=== PATIENT | male | born 1980 | race Caucasian/White ===

== ENCOUNTER 2017-02-26 14:31 | Inpatient (IN) | payer OTHER ==
[2017-02-26 15:14] LABS: Hematocrit 43 % (42-52); Hemoglobin 14.5 g/dl (14.0-18.0); Mean Corpuscular HGB Conc 34 g/dl (31-36); Mean Corpuscular Hemoglobin 31 pg (27-31); Mean Corpuscular Volume 92 fL (80-94); Mean Platelet Volume 8 um3 (7.4-10.4); Red Blood Count 4.65 10^6/ul (4.0-5.4); Red Cell Distribution Width 13 % (10.5-15); White Blood Count 5.7 10^3/ul (3.5-10.8)
[2017-02-26 15:20] LABS: Urine Bilirubin Negative (Negative); Urine Glucose Negative (Negative); Urine Nitrite Negative (Negative)
[2017-02-26 15:33] LABS: ALT 19 U/L (7-52); AST 20 U/L (13-39); Albumin 4.4 g/dL (3.2-5.2); Alkaline Phosphatase 69 U/L (34-104); Anion Gap 7 mmol/L (2-11); BUN/Creatinine Ratio 14.6 (8-20); Blood Urea Nitrogen 15 mg/dL (6-24); CO2 Carbon Dioxide 23 mmol/L (22-32); Calcium 9.4 mg/dL (8.6-10.3); Chloride 108 mmol/L (101-111); EGFR African American 105.7 (>60); EGFR Non-African American 82.2 (>60); Globulin 2.8 g/dL (2-4); Glucose 96 mg/dL (70-100); Potassium 3.8 mmol/L (3.5-5.0); Sodium 138 mmol/L (133-145); Total Protein 7.2 g/dL (6.4-8.9)
[2017-02-26 15:36] LABS: Benzodiazepine Urine Screen None Detected (None Detect)
[2017-02-26 15:49] LABS: Acetaminophen < 15 mcg/mL; Alcohol < 10 mg/dL (<10); Salicylate < 2.50 mg/dL (<30)
[2017-02-26 15:51] LABS: TSH (Thyroid Stimulating Horm) 1.55 mcIU/mL (0.34-5.60)
[2017-02-26] MEDS ORDERED: Diazepam TAB(*) 5 MG PO ONE (16:42)
[2017-02-26] MEDS ORDERED: chlorproMAZINE INJ* 25 MG/ML 2 ML (50 MG) IM PRN (21:05)
[2017-02-26] MEDS ORDERED: Acetaminophen TAB* 325 MG PO PRN (21:06)
[2017-02-26] MEDS ORDERED: Al Hydrox/Mg Hydrox/Simet LIQ* 30 ML UDC PO PRN (21:06)
[2017-02-26 21:16] LABS: Cholesterol 171 mg/dL; HDL Cholesterol 36.1 mg/dL; LDL Cholesterol 119 mg/dL; Triglycerides 81 mg/dL
[2017-02-26] MEDS: Prazosin CAP* 1 MG PO SCH (21:18)
--- NOTE | 2017-02-26 23:51 | ED ---
I, Oh,Sogiovani, scribed for Alix Morris MD on 02/26/17 at 1529 . Psychiatric Complaint - HPI Summary HPI Summary: This 36 y/o male presents to ED as 945 after police brought pt in. Pt was scheduled for invega shot, but got tired of waiting and ended up ambulating out of his apartment. He is requesting invega shot right now. PMHx is significant for depression, PTSD, and schizophrenia. Positive Hx of in-patient psych treatment. He lives alone. Pt is a former smoker and MJ user. Primary care involves Dr. Nair as his psychiatrist. - History Of Current Complaint Time Seen by Provider: 02/26/17 14:55 Hx Obtained From: Patient, Medical Records Onset/Duration: Sudden Onset Timing: Constant Character: Depressed Aggravating Factor(s): Nothing Alleviating Factor(s): Nothing Associated Signs And Symptoms: Positive: Negative Related History: Positive For: Prior Psychiatric Issues - Allergies/Home Medications Allergies/Adverse Reactions: Allergies Allergy/AdvReac Type Severity Reaction Status Date / Time No Known Allergies Allergy Verified 01/29/16 22:18 Home Medications: Home Medications Paliperidone SUSTENNA* [Invega Sustenna*] 234 mg IM Q28D 02/26/17 [History Confirmed 02/26/17] PMH/Surg Hx/FS Hx/Imm Hx Endocrine/Hematology History: Denies: Hx Anticoagulant Therapy, Hx Diabetes, Hx Thyroid Disease Cardiovascular History: Denies: Hx Hypertension, Hx Pacemaker/ICD Respiratory History: Reports: Hx Sleep Apnea Denies: Hx Asthma, Hx Chronic Obstructive Pulmonary Disease (COPD) History: Denies: Hx Renal Disease Neurological History: Denies: Hx Dementia, Hx Seizures Psychiatric History: Reports: Hx Depression, Hx Post Traumatic Stress Disorder, Hx Schizophrenia, Hx of Violent Episodes Against Others, Hx Substance Abuse - hx marijuana use Denies: Hx Eating Disorder Infectious Disease History: Denies: Hx Hepatitis, Hx Human Immunodeficiency Virus (HIV) - Family History Family History: father: AAA - Social History Alcohol Use: Rare Hx Substance Use: Yes Substance Use Type: Reports: Marijuana Substance Use Comment - Amount & Last Used: PT SAYS HE "MIGHT DO" COCAINE SOMETIMES Hx Tobacco Use: Yes Smoking Status (MU): Heavy Every Day Tobacco Smoker Type: Cigarettes Amount Used/How Often: Pt unsure of start date, unsure of amount/how often. Smoked in last 30days Length of Time of Smoking/Using Tobacco: unsure of how long Have You Smoked in the Last Year: Yes Review of Systems Negative: Fever Positive: Other - Requesting invega shot. Negative: Depressed All Other Systems Reviewed And Are Negative: Yes Physical Exam Triage Information Reviewed: Yes Vital Signs On Initial Exam: Initial Vitals Temp Pulse Resp BP Pulse Ox 98.2 F 98 16 144/69 99 02/26/17 14:45 02/26/17 14:45 02/26/17 14:45 02/26/17 14:45 02/26/17 14:45 Vital Signs Reviewed: Yes Appearance: Positive: Well-Appearing, No Pain Distress Skin: Positive: Warm, Skin Color Reflects Adequate Perfusion, Dry Eyes: Positive: EOMI, CANELO Neck: Positive: Supple, Nontender Respiratory/Lung Sounds: Positive: Clear to Auscultation, Breath Sounds Present Cardiovascular: Positive: RRR, Pulses are Symmetrical in both Upper and Lower Extremities Abdomen Description: Positive: Nontender, Soft Musculoskeletal: Positive: Strength/ROM Intact Neurological: Positive: Sensory/Motor Intact, Alert, Oriented to Person Place, Time Psychiatric: Positive: Affect/Mood Appropriate AVPU Assessment: Alert Diagnostics - Vital Signs Vital Signs Temp Pulse Resp BP Pulse Ox 02/26/17 16:52 18 02/26/17 15:00 98.2 F 68 16 142/78 100 02/26/17 14:45 98.2 F 98 16 144/69 99 - Laboratory Lab Results: Lab Results 02/26/17 02/26/17 Range/Units 14:55 14:55 WBC 5.7 (3.5-10.8) 10^3/ul RBC 4.65 (4.0-5.4) 10^6/ul Hgb 14.5 (14.0-18.0) g/dl Hct 43 (42-52) % MCV 92 (80-94) fL MCH 31 (27-31) pg MCHC 34 (31-36) g/dl RDW 13 (10.5-15) % Plt Count 267 (150-450) 10^3/ul MPV 8 (7.4-10.4) um3 Neut % (Auto) 76.6 (38-83) % Lymph % (Auto) 14.4 L (25-47) % [place] % (Auto) 7.0 (1-9) % Eos % (Auto) 1.1 (0-6) % Baso % (Auto) 0.9 (0-2) % Absolute Neuts (auto) 4.4 (1.5-7.7) 10^3/ul Absolute Lymphs (auto) 0.8 L (1.0-4.8) 10^3/ul Absolute Monos (auto) 0.4 (0-0.8) 10^3/ul Absolute Eos (auto) 0.1 (0-0.6) 10^3/ul Absolute Basos (auto) 0.1 (0-0.2) 10^3/ul Absolute Nucleated RBC 0 10^3/ul Nucleated RBC % 0 Urine Color Yellow Urine Appearance Clear Urine pH 5.0 (5-9) Ur Specific [place] 1.027 (1.010-1.030) Urine Protein Negative (Negative) Urine Ketones Negative (Negative) Urine Blood Negative (Negative) Urine Nitrate Negative (Negative) Urine Bilirubin Negative (Negative) Urine Urobilinogen Negative (Negative) Ur Leukocyte Esterase Negative (Negative) Urine Glucose Negative (Negative) Urine Ascorbic Acid * H (Negative) Result Diagrams: 02/26/17 14:55 02/26/17 14:55 Lab Statement: Any lab studies that have been ordered have been reviewed, and results considered in the medical decision making process. Course/Dx - Course Course Of Treatment: pt admitted to [facility] in stable condition - Differential Dx/Clinical Impression Provider Diagnosis: Paranoid schizophrenia - Physician Notifications Patient Is Medically Stable For: Psych Evaluation - medically cleared at 1559 PM Discharge - Discharge Plan Condition: Stable Disposition: PSYCHIATRIC FACILITY-[facility] The documentation as recorded by the Noe genao Soohyun accurately reflects the service I personally performed and the decisions made by , Alix Morris MD.
[2017-02-27] MEDS ORDERED: Paliperidone SUSTENNA* 234 MG/1.5 ML IM ONE (09:00)
[2017-02-27] MEDS: Vitamin THERAPEUTIC TAB PO SCH (09:33)
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
[2017-02-27] MEDS: Prazosin CAP* 1 MG PO SCH (20:13)
[2017-02-27] MEDS: QUEtiapine TAB* 100 MG PO PRN (23:55)
[2017-02-28] MEDS: Vitamin THERAPEUTIC TAB PO SCH (09:38)
[2017-02-28] MEDS: QUEtiapine TAB* 100 MG PO PRN ×2 (13:55→23:04)
--- NOTE | 2017-02-28 14:35 | PN ---
Subjective - Subjective Service Type: 25677 Hosp care 15 min low complexity Subjective: The patient has been observed paying obsessive attention to a female staff member on the milieu and making that person uncomfortable. He is religiously preoccupied today, stating "I just want to make everything right with God." He denies violent ideation but is odd and seen responding to internal stimuli in his room. He denies manic symptoms on review but old MMPI results indicate that he has shown manic and hypomanic tendencies in the past. He is willing to consider an additional medication for mood stabilization. Objective - Appearance Appearance: Well Developed/Nourished Dysmorphic Features: No Hygiene: Normal Grooming: Fairly Well Kept - Behavior Psychomotor Activities: Normal Exhibits Abnormal Movement: No - Attitude and Relatedness Attitude and Relatedness: Psychotically Related Eye Contact: Fair - Speech Quality: Unpressured Latencies: Normal Quantity: Appropriate - Mood Patient's Decription of Mood: "Good" - Affect Observed Affect: Fair Affect Consistent with: Euphoria - Thought Process Patient's Thought Process: Circumstantial Thought Content: Yes Paranoid Ideation, No Passive Wish, No Suicidal Planning, No Homicidal Ideation - Sensorium Experiencing Hallucinations: Yes Type of Hallucinations: Visual: No, Auditory: Yes, Command: No - Level of Consciousness Level of Consciousness: Alert Orientation: Yes Intact, Yes Orientated to Time, Yes Orientated to Place, Yes Orientated to Person - Impulse Control Impulse Control: Poor - Insight and Judgement Insight and Judgement: Impaired - Group Participation Particating in Group Activities: No - Medication Management Medication Management Adherence: Yes Assessment - Assessment Merits Inpatient Hospitalization: For Immediate Safety, For Stabilization Inpatient DSM-IV Dx: Schizoaffective, Bipolar Type Clinical Impression: 36 y.o. single, white male with a history of schizophrenia, questionable for schizoaffective disorder, and multiple inpatient psychiatric hospitalizations, currently treated by the ACT team, who is brought in on a 9.45 from [facility] where he showed up, agitated and under a police warrant for threatening psychotic behavior towards his neighbors. Plan - Plan Treatment Plan: Name: BONITA WOOD Birthdate: 1980 [id number] We have resumed injectable antipsychotic therapy with Invega Sustenna 234mg IM x one. He will likely require a booster dose of 156mg in 3 days. We will add a trial of Depakote ER 1000mg PO qhs as an adjunctive agent. Consider family meeting with ACT representatives. Continued Medication Management: Continue Outpt Medication Medications: Current Medications Acetaminophen (Tylenol Tab*) 650 mg PO Q4H PRN PRN Reason: PAIN or TEMP > 101 F Al Hydrox/Mg Hydrox/Simethicone (Maalox Plus*) 30 ml PO Q4H PRN PRN Reason: INDIGESTION Chlorpromazine HCl (Thorazine Inj*) 50 mg IM Q4H PRN PRN Reason: DANGEROUS BEHAVIOR/AGITATION Multivitamins (Theragran Tab*) 1 tab PO DAILY [facility] Last Admin: 02/28/17 09:38 Dose: Not Given Prazosin HCl (Minipress Cap*) 2 mg PO BEDTIME [facility] Last Admin: 02/27/17 20:13 Dose: 2 mg Quetiapine Fumarate (Seroquel Tab*) 100 mg PO Q4H PRN PRN Reason: INSOMNIA/ANXIETY Last Admin: 02/28/17 13:55 Dose: 100 mg - Discharge Plan Discharge Plan: Inpatient Hospitalization
[2017-02-28] MEDS: Prazosin CAP* 1 MG PO SCH (20:57)
[2017-02-28] MEDS: Divalproex ER TAB(*) 500 MG PO SCH (20:57)
[2017-03-01] MEDS: Vitamin THERAPEUTIC TAB PO SCH (08:29)
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
[2017-03-01] MEDS: Divalproex ER TAB(*) 500 MG PO SCH (19:35)
[2017-03-01] MEDS: Prazosin CAP* 1 MG PO SCH (19:36)
[2017-03-01] MEDS: QUEtiapine TAB* 100 MG PO PRN (19:36)
[2017-03-02] MEDS: Vitamin THERAPEUTIC TAB PO SCH (08:19)
--- NOTE | 2017-03-02 11:41 | PN ---
Subjective - Subjective Service Type: 78299 Hosp care 15 min low complexity Subjective: Patient continues to be odd and isolative. He is alleged to have hidden from a staff member assigned to perform 15min checks, jumping out at her from behind a bed and yelling "hopper!" He is not attending groups or socializing with peers. No complaints regarding medications. Objective - Appearance Appearance: Well Developed/Nourished Dysmorphic Features: No Hygiene: Normal Grooming: Fairly Well Kept - Behavior Psychomotor Activities: Normal Exhibits Abnormal Movement: No - Attitude and Relatedness Attitude and Relatedness: Psychotically Related Eye Contact: Fair - Speech Quality: Unpressured Latencies: Normal Quantity: Terse - Mood Patient's Decription of Mood: "Great" - Affect Observed Affect: Euphoric Affect Consistent with: Euphoria - Thought Process Patient's Thought Process: Circumstantial Thought Content: Yes Paranoid Ideation, No Passive Wish, No Suicidal Planning, No Homicidal Ideation - Sensorium Experiencing Hallucinations: No, Sensorium is Clear Type of Hallucinations: Visual: No, Auditory: No, Command: No - Level of Consciousness Level of Consciousness: Alert Orientation: Yes Intact, Yes Orientated to Time, Yes Orientated to Place, Yes Orientated to Person - Impulse Control Impulse Control: Poor - Insight and Judgement Insight and Judgement: Impaired - Group Participation Particating in Group Activities: No - Medication Management Medication Management Adherence: Yes Assessment - Assessment Merits Inpatient Hospitalization: For Immediate Safety, For Stabilization Inpatient DSM-IV Dx: Schizoaffective, Bipolar Type Clinical Impression: 36 y.o. single, white male with a history of schizophrenia, questionable for schizoaffective disorder, and multiple inpatient psychiatric hospitalizations, currently treated by the ACT team, who is brought in on a 9.45 from [facility] where he showed up, agitated and under a police warrant for threatening psychotic behavior towards his neighbors. Plan - Plan Treatment Plan: Name: BONITA WOOD Birthdate: 1980 [id number] We have resumed injectable antipsychotic therapy with Invega Sustenna 234mg IM x one. He will likely require a booster dose of 156mg in 3 days. We have added a trial of Depakote ER 1000mg PO qhs as an adjunctive agent. Consider family meeting with ACT representatives. Continued Medication Management: Continue Outpt Medication Medications: Current Medications Acetaminophen (Tylenol Tab*) 650 mg PO Q4H PRN PRN Reason: PAIN or TEMP > 101 F Al Hydrox/Mg Hydrox/Simethicone (Maalox Plus*) 30 ml PO Q4H PRN PRN Reason: INDIGESTION Chlorpromazine HCl (Thorazine Inj*) 50 mg IM Q4H PRN PRN Reason: DANGEROUS BEHAVIOR/AGITATION Divalproex Sodium (Depakote Er Tab(*)) 1,000 mg PO BEDTIME [facility] Last Admin: 03/01/17 19:35 Dose: 1,000 mg Multivitamins (Theragran Tab*) 1 tab PO DAILY [facility] Last Admin: 03/02/17 08:19 Dose: 1 tab Prazosin HCl (Minipress Cap*) 2 mg PO BEDTIME [facility] Last Admin: 03/01/17 19:36 Dose: 2 mg Quetiapine Fumarate (Seroquel Tab*) 100 mg PO Q4H PRN PRN Reason: INSOMNIA/ANXIETY Last Admin: 03/01/17 19:36 Dose: 100 mg - Discharge Plan Discharge Plan: Inpatient Hospitalization
[2017-03-02] MEDS: Prazosin CAP* 1 MG PO SCH (20:40)
[2017-03-02] MEDS: Divalproex ER TAB(*) 500 MG PO SCH (20:40)
[2017-03-03] MEDS: QUEtiapine TAB* 100 MG PO PRN (02:15)
[2017-03-03] MEDS: Vitamin THERAPEUTIC TAB PO SCH (08:46)
--- NOTE | 2017-03-03 17:18 | PN ---
Subjective - Subjective Subjective: Seclusive to his room, denies any bothersome psychiatric complaints, aviddly denies SI/HI or A/VH or side effects from prescribed meds. He is aware of and agreeable to plan of care here. Objective - Appearance Appearance: Obese Dysmorphic Features: No Hygiene: Normal Grooming: Well Kept - Behavior Psychomotor Activities: Abnormal-Decreased Exhibits Abnormal Movement: No - Attitude and Relatedness Attitude and Relatedness: Psychotically Related Eye Contact: Poor - Speech Quality: Unpressured Latencies: Long Quantity: Terse - Mood Patient's Decription of Mood: "Okay" - Affect Observed Affect: Unvariable Affect Consistent with: Dysphoria - Thought Process Patient's Thought Process: Impoverished Thought Content: No Passive Wish, No Suicidal Planning, No Homicidal Ideation, No Paranoid Ideation - Sensorium Experiencing Hallucinations: No, Sensorium is Clear - Level of Consciousness Level of Consciousness: Alert Orientation: Yes Intact - Impulse Control Impulse Control: Intact - Insight and Judgement Insight and Judgement: Impaired - Group Participation Particating in Group Activities: No - Medication Management Medication Management Adherence: Yes Assessment - Assessment Merits Inpatient Hospitalization: Consolidate Improvements, For Discharge Planning Inpatient DSM-IV Dx: Schizoaffective, Bipolar Type Clinical Impression: Stabilizing in this structured setting, tolerating trials of meds. He needs continued admission for stabilization. Plan - Plan Treatment Plan: Name: BONITA WOOD Birthdate: 1980 [id number] Medications: Current Medications Acetaminophen (Tylenol Tab*) 650 mg PO Q4H PRN PRN Reason: PAIN or TEMP > 101 F Al Hydrox/Mg Hydrox/Simethicone (Maalox Plus*) 30 ml PO Q4H PRN PRN Reason: INDIGESTION Chlorpromazine HCl (Thorazine Inj*) 50 mg IM Q4H PRN PRN Reason: DANGEROUS BEHAVIOR/AGITATION Divalproex Sodium (Depakote Er Tab(*)) 1,000 mg PO BEDTIME [facility] Last Admin: 03/02/17 20:40 Dose: 1,000 mg Multivitamins (Theragran Tab*) 1 tab PO DAILY [facility] Last Admin: 03/03/17 08:46 Dose: 1 tab Prazosin HCl (Minipress Cap*) 2 mg PO BEDTIME [facility] Last Admin: 03/02/17 20:40 Dose: 2 mg Quetiapine Fumarate (Seroquel Tab*) 100 mg PO Q4H PRN PRN Reason: INSOMNIA/ANXIETY Last Admin: 03/03/17 02:15 Dose: 100 mg - Discharge Plan Discharge Plan: Outpatient Follow Up Outpatient Program: [facility]
[2017-03-03] MEDS: Divalproex ER TAB(*) 500 MG PO SCH (20:32)
[2017-03-03] MEDS: Prazosin CAP* 1 MG PO SCH (20:32)
[2017-03-04] MEDS: Vitamin THERAPEUTIC TAB PO SCH (08:56)
[2017-03-04] MEDS: Divalproex ER TAB(*) 500 MG PO SCH (20:12)
[2017-03-04] MEDS: Prazosin CAP* 1 MG PO SCH (20:12)
[2017-03-05] MEDS: Vitamin THERAPEUTIC TAB PO SCH (08:24)
[2017-03-05] MEDS ORDERED: Paliperidone SUSTENNA* 156 MG/1 ML IM ONE (12:24)
--- NOTE | 2017-03-05 12:30 | PN ---
Subjective - Subjective Service Type: [id number] Hosp care 15 min low complexity Subjective: The patient continues to be hyperreligious. He states that God has given him special peng of "Flying...and durability." He is informed that we will be pursuing transfer to a State [facility] facility, to which he responds "You're messing with God's plan for me." He refused VPA level draw this AM. Pt. continues to avoid milieu activities. Objective - Appearance Appearance: Well Developed/Nourished Dysmorphic Features: No Hygiene: Normal Grooming: Fairly Well Kept - Behavior Psychomotor Activities: Normal Exhibits Abnormal Movement: No - Attitude and Relatedness Attitude and Relatedness: Psychotically Related Eye Contact: Fair - Speech Quality: Unpressured Latencies: Normal Quantity: Terse - Mood Patient's Decription of Mood: "Great" - Affect Observed Affect: Euphoric Affect Consistent with: Euphoria - Thought Process Patient's Thought Process: Circumstantial Thought Content: Yes Paranoid Ideation, No Passive Wish, No Suicidal Planning, No Homicidal Ideation - Sensorium Experiencing Hallucinations: No, Sensorium is Clear Type of Hallucinations: Visual: No, Auditory: No, Command: No - Level of Consciousness Level of Consciousness: Alert Orientation: Yes Intact, Yes Orientated to Time, Yes Orientated to Place, Yes Orientated to Person - Impulse Control Impulse Control: Poor - Insight and Judgement Insight and Judgement: Impaired - Group Participation Particating in Group Activities: No - Medication Management Medication Management Adherence: Yes Assessment - Assessment Merits Inpatient Hospitalization: For Immediate Safety, For Stabilization Inpatient DSM-IV Dx: Schizoaffective, Bipolar Type Clinical Impression: 36 y.o. single, white male with a history of schizophrenia, questionable for schizoaffective disorder, and multiple inpatient psychiatric hospitalizations, currently treated by the [facility] team, who is brought in on a 9.45 from [facility] where he showed up, agitated and under a police warrant for threatening psychotic behavior towards his neighbors. Plan - Plan Treatment Plan: Name: BONITA WOOD Birthdate: 1980 [id number] The patient is showing no signs of improvement yet. We have resumed injectable antipsychotic therapy with Invega Sustenna 234mg IM x one, and will give a booster dose of 156mg later today. We have added a trial of Depakote ER 1000mg PO qhs as an adjunctive agent but he refused the VPA level this AM. Will pursue transfer to the [facility] system. Continued Medication Management: Different Medication Medications: Current Medications Acetaminophen (Tylenol Tab*) 650 mg PO Q4H PRN PRN Reason: PAIN or TEMP > 101 F Al Hydrox/Mg Hydrox/Simethicone (Maalox Plus*) 30 ml PO Q4H PRN PRN Reason: INDIGESTION Chlorpromazine HCl (Thorazine Inj*) 50 mg IM Q4H PRN PRN Reason: DANGEROUS BEHAVIOR/AGITATION Divalproex Sodium (Depakote Er Tab(*)) 1,000 mg PO BEDTIME [facility] Last Admin: 03/04/17 20:12 Dose: 1,000 mg Multivitamins (Theragran Tab*) 1 tab PO DAILY [facility]YE Last Admin: 03/05/17 08:24 Dose: 1 tab Paliperidone Palmitate (Invega Sustenna*) 156 mg IM ONCE ONE Stop: 03/05/17 12:25 Prazosin HCl (Minipress Cap*) 2 mg PO BEDTIME [facility]YE Last Admin: 03/04/17 20:12 Dose: 2 mg Quetiapine Fumarate (Seroquel Tab*) 100 mg PO Q4H PRN PRN Reason: INSOMNIA/ANXIETY Last Admin: 03/03/17 02:15 Dose: 100 mg - Discharge Plan Discharge Plan: Consider Longer Term Tx
[2017-03-05] MEDS: QUEtiapine TAB* 100 MG PO PRN (16:06)
[2017-03-06] MEDS: Prazosin CAP* 1 MG PO SCH ×3 (01:01→20:31)
[2017-03-06] MEDS: Divalproex ER TAB(*) 500 MG PO SCH ×2 (01:01→04:03)
[2017-03-06] MEDS: Vitamin THERAPEUTIC TAB PO SCH (11:02)
--- NOTE | 2017-03-06 14:31 | PN ---
Subjective - Subjective Service Type: [id number] Hosp care 15 min low complexity Subjective: Patient continues to refuse blood work and says that he wants to be taken off Depakote. He denies specific side effects, only stating "I don't like how it makes me feel." His presentation tends to vacillate between roaming the halls smiling incongruously and shutting himself up inside his room, screaming and talking to himself. Today he approached staff and asked to speak with me using what allegedly sounded like a little girl's voice. He denies SI or HI but is hyperreligious. Objective - Appearance Appearance: Well Developed/Nourished Dysmorphic Features: No Hygiene: Normal Grooming: Well Kept - Behavior Psychomotor Activities: Normal Exhibits Abnormal Movement: No - Attitude and Relatedness Attitude and Relatedness: Psychotically Related Eye Contact: Fair - Speech Quality: Unpressured Latencies: Normal Quantity: Terse - Mood Patient's Decription of Mood: "Great" - Affect Observed Affect: Euphoric Affect Consistent with: Euphoria - Thought Process Patient's Thought Process: Circumstantial Thought Content: Yes Paranoid Ideation, No Passive Wish, No Suicidal Planning, No Homicidal Ideation - Sensorium Experiencing Hallucinations: Yes Type of Hallucinations: Visual: No, Auditory: Yes, Command: No - Level of Consciousness Level of Consciousness: Agitated Orientation: Yes Intact, Yes Orientated to Time, Yes Orientated to Place, Yes Orientated to Person - Impulse Control Impulse Control: Poor - Insight and Judgement Insight and Judgement: Impaired - Group Participation Particating in Group Activities: No - Medication Management Medication Management Adherence: Yes Assessment - Assessment Merits Inpatient Hospitalization: For Immediate Safety, For Stabilization Inpatient DSM-IV Dx: Schizoaffective, Bipolar Type Clinical Impression: 36 y.o. single, white male with a history of schizophrenia, questionable for schizoaffective disorder, and multiple inpatient psychiatric hospitalizations, currently treated by the [facility] team, who [facility] he [facility], agitated and under a police warrant for threatening psychotic behavior towards his neighbors. Plan - Plan Treatment Plan: Name: BONITA WOOD Birthdate: 1980 [id number] The patient is showing no signs of improvement yet. We have resumed injectable antipsychotic therapy with Invega Sustenna 234mg IM q4wks, with next dose being due April 02. We have added a trial of Depakote ER 1000mg PO qhs as an adjunctive but he is now refusing this for unclear reasons and would not allow us to take a VPA level. Will pursue transfer to the [facility] system. Continued Medication Management: Continue Outpt Medication Medications: Current Medications Acetaminophen (Tylenol Tab*) 650 mg PO Q4H PRN PRN Reason: PAIN or TEMP > 101 F Al Hydrox/Mg Hydrox/Simethicone (Maalox Plus*) 30 ml PO Q4H PRN PRN Reason: INDIGESTION Haloperidol (Haldol Tab*) 5 mg PO Q6H PRN PRN Reason: AGITATION Multivitamins (Theragran Tab*) 1 tab PO DAILY [facility] Last Admin: 03/06/17 11:02 Dose: Not Given Prazosin HCl (Minipress Cap*) 2 mg PO BEDTIME [facility] Last Admin: 03/06/17 04:03 Dose: 2 mg Quetiapine Fumarate (Seroquel Tab*) 100 mg PO Q4H PRN PRN Reason: INSOMNIA/ANXIETY Last Admin: 03/05/17 16:06 Dose: 100 mg - Discharge Plan Discharge Plan: Consider Longer Term Tx
[2017-03-06] MEDS: Haloperidol TAB* 5 MG PO PRN (22:31)
[2017-03-06] MEDS: QUEtiapine TAB* 100 MG PO PRN (22:32)
[2017-03-07] MEDS: Vitamin THERAPEUTIC TAB PO SCH ×2 (09:23→12:33)
--- NOTE | 2017-03-07 13:57 | PN ---
Subjective - Subjective Service Type: [id number] Hosp care 35 min high complexity Subjective: Anthony is seen for his administrative hearing regarding referral to the [facility]. He argues that he does not believe he has schizophrenia but rather demonic possession. He discusses multiple delusional, hyperreligious subjects such as [facility] and his thought that he was the "[employer]" presumably of the [facility]. Staff continues to hear him speaking and occasionally shouting to himself in his room. He continues to require almost daily antipsychotic prn meds. Objective - Appearance Appearance: Well Developed/Nourished Dysmorphic Features: No Hygiene: Normal Grooming: Disheveled - Behavior Psychomotor Activities: Normal Exhibits Abnormal Movement: No - Attitude and Relatedness Attitude and Relatedness: Psychotically Related Eye Contact: Fair - Speech Quality: Unpressured Latencies: Normal Quantity: Appropriate - Mood Patient's Decription of Mood: "Great" - Affect Observed Affect: Euphoric Affect Consistent with: Euphoria - Thought Process Patient's Thought Process: Tangential Thought Content: Yes Paranoid Ideation, No Passive Wish, No Suicidal Planning, No Homicidal Ideation - Sensorium Experiencing Hallucinations: Yes Type of Hallucinations: Visual: No, Auditory: Yes, Command: No - Level of Consciousness Level of Consciousness: Alert Orientation: Yes Intact, Yes Orientated to Time, Yes Orientated to Place, Yes Orientated to Person - Impulse Control Impulse Control: Poor - Insight and Judgement Insight and Judgement: Impaired - Group Participation Particating in Group Activities: No - Medication Management Medication Management Adherence: Yes Assessment - Assessment Merits Inpatient Hospitalization: For Immediate Safety, For Stabilization Inpatient DSM-IV Dx: Schizoaffective, Bipolar Type Clinical Impression: 36 y.o. single, white male with a history of schizophrenia, questionable for schizoaffective disorder, and multiple inpatient psychiatric hospitalizations, currently treated by the [facility] team, who is brought in on a 9.45 from [facility] where he showed up, agitated and under a police warrant for threatening psychotic behavior towards his neighbors. Plan - Plan Treatment Plan: Name: ANTHONY WOOD Birthdate: 1980 [id number] The patient is showing no signs of improvement yet. We have resumed injectable antipsychotic therapy with Invega Sustenna 234mg IM q4wks, with next dose being due April 02. Patient declines Depakote therapy. Will pursue transfer to the [facility] system. Continued Medication Management: Continue Outpt Medication Medications: Current Medications Acetaminophen (Tylenol Tab*) 650 mg PO Q4H PRN PRN Reason: PAIN or TEMP > 101 F Al Hydrox/Mg Hydrox/Simethicone (Maalox Plus*) 30 ml PO Q4H PRN PRN Reason: INDIGESTION Haloperidol (Haldol Tab*) 5 mg PO Q6H PRN PRN Reason: AGITATION Last Admin: 03/06/17 22:31 Dose: 5 mg Multivitamins (Theragran Tab*) 1 tab PO DAILY [facility] Last Admin: 03/07/17 12:33 Dose: 1 tab Prazosin HCl (Minipress Cap*) 2 mg PO BEDTIME [facility] Last Admin: 03/06/17 20:31 Dose: 2 mg Quetiapine Fumarate (Seroquel Tab*) 100 mg PO Q4H PRN PRN Reason: INSOMNIA/ANXIETY Last Admin: 03/06/17 22:32 Dose: 100 mg - Discharge Plan Discharge Plan: Consider Longer Term Tx
[2017-03-07] MEDS: QUEtiapine TAB* 100 MG PO PRN (20:02)
[2017-03-07] MEDS: Prazosin CAP* 1 MG PO SCH (20:02)
[2017-03-07] MEDS: Haloperidol TAB* 5 MG PO PRN (20:02)
[2017-03-08] MEDS: Vitamin THERAPEUTIC TAB PO SCH (10:02)
[2017-03-08] MEDS: QUEtiapine TAB* 100 MG PO PRN (20:04)
[2017-03-08] MEDS: Haloperidol TAB* 5 MG PO PRN (20:04)
[2017-03-08] MEDS: Prazosin CAP* 1 MG PO SCH (20:04)
[2017-03-09] MEDS: Vitamin THERAPEUTIC TAB PO SCH (08:38)
--- NOTE | 2017-03-09 16:58 | PN ---
Subjective - Subjective Service Type: [id number] Hosp care 15 min low complexity Subjective: Anthony continues to pace the hallways, not socializing or participating in milieu activities. He can still be observed at times talking or shouting to himself, particularly in his room. He denies SI or HI and feels that he should be discharged. Objective - Appearance Appearance: Well Developed/Nourished Dysmorphic Features: No Hygiene: Normal Grooming: Fairly Well Kept - Behavior Psychomotor Activities: Normal Exhibits Abnormal Movement: No - Attitude and Relatedness Attitude and Relatedness: Psychotically Related Eye Contact: Fair - Speech Quality: Unpressured Latencies: Normal Quantity: Appropriate - Mood Patient's Decription of Mood: "Fine" - Affect Observed Affect: Euphoric Affect Consistent with: Euphoria - Thought Process Patient's Thought Process: Circumstantial Thought Content: Yes Paranoid Ideation, No Passive Wish, No Suicidal Planning, No Homicidal Ideation - Sensorium Experiencing Hallucinations: Yes Type of Hallucinations: Visual: No, Auditory: Yes, Command: No - Level of Consciousness Level of Consciousness: Alert Orientation: Yes Intact, Yes Orientated to Time, Yes Orientated to Place, Yes Orientated to Person - Impulse Control Impulse Control: Poor - Insight and Judgement Insight and Judgement: Impaired - Group Participation Particating in Group Activities: No - Medication Management Medication Management Adherence: Partial Assessment - Assessment Merits Inpatient Hospitalization: For Immediate Safety, For Stabilization Inpatient DSM-IV Dx: Schizoaffective, Bipolar Type Clinical Impression: 36 y.o. single, white male with a history of schizophrenia, questionable for schizoaffective disorder, and multiple inpatient psychiatric hospitalizations, currently treated by the [facility] team, who is brought in on a 9.45 from [facility] where he showed up, agitated and under a police warrant for threatening psychotic behavior towards his neighbors. Plan - Plan Treatment Plan: Name: ANTHONY WOOD Birthdate: 1980 [id number] The patient is showing no signs of improvement yet. We have resumed injectable antipsychotic therapy with Invega Sustenna 234mg IM q4wks, with next dose being due April 02. Patient declines Depakote therapy. Patient awaits transfer to the [facility] system. Continued Medication Management: Continue Outpt Medication Medications: Current Medications Acetaminophen (Tylenol Tab*) 650 mg PO Q4H PRN PRN Reason: PAIN or TEMP > 101 F Al Hydrox/Mg Hydrox/Simethicone (Maalox Plus*) 30 ml PO Q4H PRN PRN Reason: INDIGESTION Haloperidol (Haldol Tab*) 5 mg PO Q6H PRN PRN Reason: AGITATION Last Admin: 03/08/17 20:04 Dose: 5 mg Multivitamins (Theragran Tab*) 1 tab PO DAILY [facility] Last Admin: 03/09/17 08:38 Dose: 1 tab Prazosin HCl (Minipress Cap*) 2 mg PO BEDTIME [facility] Last Admin: 03/08/17 20:04 Dose: 2 mg Quetiapine Fumarate (Seroquel Tab*) 100 mg PO Q4H PRN PRN Reason: INSOMNIA/ANXIETY Last Admin: 03/08/17 20:04 Dose: 100 mg - Discharge Plan Discharge Plan: Consider Longer Term Tx
[2017-03-09] MEDS: Prazosin CAP* 1 MG PO SCH (20:23)
[2017-03-09] MEDS: QUEtiapine TAB* 100 MG PO PRN (20:24)
[2017-03-09] MEDS: Haloperidol TAB* 5 MG PO PRN (20:24)
[2017-03-10] MEDS: Vitamin THERAPEUTIC TAB PO SCH (08:26)
[2017-03-10] MEDS: Haloperidol TAB* 5 MG PO PRN ×2 (10:17→21:37)
[2017-03-10] MEDS: QUEtiapine TAB* 100 MG PO PRN (10:18)
[2017-03-10] MEDS ORDERED: LORazepam TAB(*) 1 MG ONE (11:18)
[2017-03-10] MEDS ORDERED: LORazepam TAB(*) 1 MG PO ONE (12:00)
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
[2017-03-10] MEDS: Prazosin CAP* 1 MG PO SCH (20:29)
[2017-03-10] MEDS: LORazepam TAB(*) 1 MG PO PRN (20:30)
[2017-03-10] MEDS: Benztropine TAB* 1 MG PO SCH (20:30)
[2017-03-11] MEDS: Vitamin THERAPEUTIC TAB PO SCH (08:31)
[2017-03-11] MEDS: Benztropine TAB* 1 MG PO SCH ×2 (08:31→20:26)
[2017-03-11] MEDS: Prazosin CAP* 1 MG PO SCH (20:26)
[2017-03-11] MEDS: Haloperidol TAB* 5 MG PO PRN (20:29)
[2017-03-11] MEDS: LORazepam TAB(*) 1 MG PO PRN (20:29)
[2017-03-12] MEDS: LORazepam TAB(*) 1 MG PO PRN (01:44)
[2017-03-12] MEDS: Haloperidol TAB* 5 MG PO PRN (01:44)
[2017-03-12] MEDS: Vitamin THERAPEUTIC TAB PO SCH (08:12)
[2017-03-12] MEDS: Benztropine TAB* 1 MG PO SCH (08:12)
[2017-03-12 08:14] VITALS: BP 110/89
--- NOTE | 2017-03-13 11:19 | DS ---
Subjective - Subjective Discharge Date: 03/12/17 Subjective: Anthony protest his transfer to [facility], citing previous bad experiences at [facility]. He tries to negotiate an extended stay here. 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 He denies A/VH and he did not offer any delusional content. Objective - Appearance Appearance: Well Developed/Nourished Dysmorphic Features: No Hygiene: Normal Grooming: Well Kept - Behavior Psychomotor Activities: Normal Exhibits Abnormal Movement: No - Attitude and Relatedness Attitude and Relatedness: Psychotically Related Eye Contact: Fair - Speech Quality: Unpressured Latencies: Normal Quantity: Terse - Mood Patient's Decription of Mood: "Upset" - Affect Observed Affect: Non-labile Affect Consistent with: Dysphoria - Thought Process Patient's Thought Process: Coherent, Impoverished Thought Content: No Passive Wish, No Suicidal Planning, No Homicidal Ideation, No Paranoid Ideation - Sensorium Experiencing Hallucinations: No, Sensorium is Clear - Level of Consciousness Level of Consciousness: Alert Orientation: Yes Intact - Impulse Control Impulse Control: Intact - Insight and Judgement Insight and Judgement: Impaired - Group Participation Particating in Group Activities: Yes - Medication Management Medication Management Adherence: Yes Treatment Course & Assessment Clinical Course & Impression: SUMMARY: 36 y.o. single, white male with a history of schizophrenia, questionable for schizoaffective disorder, and multiple inpatient psychiatric hospitalizations, currently treated by the [facility] team, who is brought in on a 9.45 from [facility] where he showed up, agitated and under a police warrant for threatening psychotic behavior towards his neighbors. HOSPITAL COURSE: 02/28/17: The patient has been observed paying obsessive attention to a female staff member on the milieu and making that person uncomfortable. He is religiously preoccupied today, stating "I just want to make everything right with God." He denies violent ideation but is odd and seen responding to internal stimuli in his room. He denies manic symptoms on review but old MMPI results indicate that he has shown manic and hypomanic tendencies in the past. He is willing to consider an additional medication for mood stabilization. We have resumed injectable antipsychotic therapy with Invega Sustenna 234mg IM x one. He will likely require a booster dose of 156mg in 3 days. We will add a trial of Depakote ER 1000mg PO qhs as an adjunctive agent. Consider family meeting with [facility] representatives. 03/02/17: Patient continues to be odd and isolative. He is alleged to have hidden from a staff member assigned to perform 15min checks, jumping out at her from behind a bed and yelling "hopper!" He is not attending groups or socializing with peers. No complaints regarding medications. 03/06/17: Patient continues to refuse blood work and says that he wants to be taken off Depakote. He denies specific side effects, only stating "I don't like how it makes me feel." His presentation tends to vacillate between roaming the halls smiling incongruously and shutting himself up inside his room , screaming and talking to himself. Today he approached staff and asked to speak with me using what allegedly sounded like a little girl's voice. He denies SI or HI but is hyper mormon 03/09/17: The patient is showing no signs of improvement yet. We have resumed injectable antipsychotic therapy with Invega Sustenna 234mg IM q4wks, with next dose being due April 02. Patient declines Depakote therapy. Patient awaits transfer to the [facility] system. 03/10/17: Anthony continue to pace the [address] and reported that he feels like exploding. Ativan 2mg po was offered and he reluctantly accepted and asking for Valium. Calmed down in an hour or so and thanked the Nursing staffs for helping him feel calm. Still guarded, suspicious and tense. Wants to be discharged home. 02/09/17: Patient transferred to [facility] for continued inpatient psychiatric admission in hopes of fully stabilizing him. Merits Inpatient Hospitalization: Yes Inpatient DSM-IV Dx: Schizoaffective, Bipolar Type Discharge Planning - Discharge Planning Discharge Plan: Consider Longer Term Tx Outpatient Program: [facility] Recommendations for Continuing Care: Medication Management, Psychotherapy Medications: Transfer Medications 1. Benztropine TAB* [Cogentin TAB*] Raoul Bermudez MD 1 mg oral twice daily Last Taken: 03/12/17 08:12 1 mg 2. Haloperidol TAB* [Haldol TAB*] Raoul Bermduez MD 5 mg oral every 6 hours as needed Last Taken: 03/12/17 01:44 5 mg PRN Reason: Agitation 3. LORazepam TAB(*) [Ativan 1 MG TAB (*)] Raoul Bermudez MD 1 mg oral every 6 hours as needed not to exceed 4 mg per day Last Taken: 03/12/17 01:44 1 mg PRN Reason: Anxiety 4. Prazosin CAP* [Minipress CAP*] Raoul Bermudez MD 2 mg oral bedtime Last Taken: 03/11/17 20:26 2 mg 5. Paliperidone SUSTENNA* [Invega Sustenna*] 234 mg intramuscular every 28 days Last Taken: Unknown Discharge Planning: Prescriptions provided for discharge [] Yes [X] No Follow up care details as per social work arrangements. Patient response to discharge plan: [] eager for discharge [] agreeable with discharge plan [] ambivalent about discharge [X] disagrees with transfer today Patient was transferred to [facility] for continued inpatient psychiatric admission for fully stabilize him.
== END 2017-03-12 15:37 | disposition home or self-care (01) | DRG 750 ==
LOC: ED 14:31 → BSU 21:00
PROVIDERS: ADMIT Psychiatry & Neurology Psychiatry; ATTEND Psychiatry & Neurology Psychiatry
DX: F25.0 Schizoaffective disorder, bipolar type (principal); Z91.14 Patient's other noncompliance with medication regimen; F32.9 Major depressive disorder, single episode, unspecified; F12.90 Cannabis use, unspecified, uncomplicated; F43.10 Post-traumatic stress disorder, unspecified; G47.30 Sleep apnea, unspecified; Z87.820 Personal history of traumatic brain injury; Z81.8 Family history of other mental and behavioral disorders; Z81.4 Family history of other substance abuse and dependence; Z87.891 Personal history of nicotine dependence; Z82.49 Family history of ischemic heart disease and other diseases of the circulatory system
CPT/HCPCS: 36415; 80053; 80061; 80307; 80320; 80329; 81003; 83036; 84443; 85025; 99222; 99231; 99233; 99238; A9270-GY; G0480

== ENCOUNTER 2020-11-19 19:19 | Inpatient (IN) ==
[2020-11-19] MEDS ORDERED: Lorazepam PYXIS KEY PRN (22:27)
[2020-11-19] MEDS ORDERED: LORazepam 2 mg VIAL 1 ml IM ONE (22:27)
[2020-11-19] MEDS ORDERED: Ziprasidone IM 20 mg VIAL 1 ml VIAL IM ONE (22:27)
[2020-11-20 01:08] LABS: ABS Eosinophils 0.1 10^3/ul (0-0.6); ABS Monocytes 0.6 10^3/ul (0-0.8); ABS Neutrophils 3.5 10^3/ul (1.5-7.7); Eosinophil % 1.4 %; Hematocrit 44 % (42-52); Hemoglobin 15.5 g/dL (14.0-18.0); Lymphocyte % 19.8 %; Mean Corpuscular HGB Conc 36 g/dL (31-36); Mean Corpuscular Hemoglobin 32 pg (27-31); Mean Corpuscular Volume 89 fL (80-94); Mean Platelet Volume 7.9 fL (7.4-10.4); Platelet Count 238 10^3/uL (150-450); Red Cell Distribution Width 13 % (10-15); White Blood Count 5.2 10^3/uL (3.5-10.8)
[2020-11-20 01:26] LABS: Acetaminophen < 15 mcg/mL; Alcohol, S < 10 mg/dL (<10); Salicylate < 2.50 mg/dL (<30)
[2020-11-20 01:27] LABS: ALT 25 U/L (7-52); AST 22 U/L (13-39); Albumin 4.3 g/dL (3.2-5.2); Albumin/Globulin Ratio 1.8 (1-3); Alkaline Phosphatase 59 U/L (34-104); Anion Gap 8 mmol/L (2-11); BUN/Creatinine Ratio 12.9 (8-20); Blood Urea Nitrogen 13 mg/dL (6-24); CO2 Carbon Dioxide 25 mmol/L (22-32); Calcium 9.3 mg/dL (8.6-10.3); Chloride 106 mmol/L (101-111); EGFR Non-African American 82.7 (>60); Globulin 2.4 g/dL (2-4); Glucose 100 mg/dL (70-100); Potassium 3.7 mmol/L (3.5-5.0); Sodium 139 mmol/L (135-145); Total Protein 6.7 g/dL (6.4-8.9)
[2020-11-20 01:42] LABS: TSH Ultra Thyroid Stim Horm 3.47 mcIU/mL (0.34-5.60)
[2020-11-20] MEDS ORDERED: chlorproMAZINE 25 MG/ML 2 ML (50 MG) IM ONE (06:02)
[2020-11-20] MEDS ORDERED: Al Hydrox/Mg Hydrox/Simet LIQ 30 ML UDC PO PRN (06:07)
[2020-11-20] MEDS: Vitamin THERAPEUTIC TAB PO SCH (09:53)
[2020-11-20] MEDS ORDERED: Nicotine GUM 4MG FRUIT FLAVOR PO PRN (19:00)
[2020-11-21] MEDS: Nicotine PATCH 21 MG/24 HR PATCH TRANSDERM SCH (08:42)
[2020-11-21] MEDS: Vitamin THERAPEUTIC TAB PO SCH (08:42)
[2020-11-22] MEDS: Vitamin THERAPEUTIC TAB PO SCH (09:31)
[2020-11-22] MEDS: Nicotine PATCH 21 MG/24 HR PATCH TRANSDERM SCH (09:31)
[2020-11-22] MEDS ORDERED: risperiDONE-M 1 mg Oradis TAB PO SCH (21:00)
[2020-11-23] MEDS ORDERED: risperiDONE-M 1 mg Oradis TAB PO SCH (09:00)
[2020-11-23] MEDS: Nicotine PATCH 21 MG/24 HR PATCH TRANSDERM SCH (13:24)
[2020-11-23] MEDS: Vitamin THERAPEUTIC TAB PO SCH (13:25)
[2020-11-23] MEDS ORDERED: risperiDONE-M 1 mg Oradis TAB ONE (17:28)
[2020-11-23] MEDS: risperiDONE-M 1 mg Oradis TAB PO SCH (21:13)
[2020-11-24] MEDS: Vitamin THERAPEUTIC TAB PO SCH (08:45)
[2020-11-24] MEDS: risperiDONE-M 1 mg Oradis TAB PO SCH (21:00)
[2020-11-25] MEDS: Vitamin THERAPEUTIC TAB PO SCH (12:19)
[2020-11-25] MEDS: risperiDONE-M 1 mg Oradis TAB PO SCH (21:28)
[2020-11-26] MEDS: Vitamin THERAPEUTIC TAB PO SCH (10:31)
[2020-11-26] MEDS: risperiDONE-M 1 mg Oradis TAB PO SCH ×2 (21:13→21:42)
[2020-11-27] MEDS: Vitamin THERAPEUTIC TAB PO SCH (09:15)
[2020-11-27] MEDS: risperiDONE-M 1 mg Oradis TAB PO SCH (22:00)
[2020-11-28] MEDS: Vitamin THERAPEUTIC TAB PO SCH (13:38)
[2020-11-28] MEDS: risperiDONE-M 1 mg Oradis TAB PO SCH (20:53)
[2020-11-29] MEDS: Vitamin THERAPEUTIC TAB PO SCH (09:32)
[2020-11-30] MEDS: Vitamin THERAPEUTIC TAB PO SCH (12:09)
[2020-11-30] MEDS ORDERED: Vitamin THERAPEUTIC TAB ONE (20:25)
[2020-12-01] MEDS: Vitamin THERAPEUTIC TAB PO SCH (10:15)
[2020-12-02] MEDS: Vitamin THERAPEUTIC TAB PO SCH (14:07)
[2020-12-03] MEDS: Vitamin THERAPEUTIC TAB PO SCH (08:57)
[2020-12-04] MEDS: Vitamin THERAPEUTIC TAB PO SCH (09:37)
[2020-12-05] MEDS: Vitamin THERAPEUTIC TAB PO SCH ×2 (09:44→10:32)
[2020-12-06] MEDS: Vitamin THERAPEUTIC TAB PO SCH (08:35)
[2020-12-06] MEDS ORDERED: Haloperidol 5 mg/ml SDV IV/IM 5 MG/ML AMP ONE (13:05)
[2020-12-07] MEDS: Vitamin THERAPEUTIC TAB PO SCH (12:41)
[2020-12-07 22:46] VITALS: BP 116/78
== END 2020-12-08 09:00 ==
LOC: ED 19:19 → BSU 11-20 04:28
PROVIDERS: ADMIT Psychiatry & Neurology Addiction Psychiatry; ATTEND Psychiatry & Neurology Psychiatry